=== PATIENT | female | born 1940 | race Caucasian/White ===

== ENCOUNTER 2017-05-24 01:01 | Inpatient (IN) | payer OTHER ==
[~2017-05-24] VITALS: Ht 152.4 cm; Wt 81.3 kg
[~2017-05-24 01:01] MED LIST: JANUVIA100 MG PO; LEVOTHYROXIN0.088 MG PO; MELOXICAM7.5 MG PO
[2017-05-24 02:18] LABS: CALCIUM 8.3 mg/dL (8.5-10.1); CARBON DIOXIDE 23.3 mmol/L (21-32); CHLORIDE SERUM 99 mmol/L (98-107); CREATININE SERUM 0.8 mg/dL (0.6-1.0); GLUCOSE SERUM 136 mg/dL (74-106); POTASSIUM SERUM 3.3 mmol/L (3.5-5.1); SODIUM SERUM 132 mmol/L (136-145)
[2017-05-24 02:23] LABS: ALBUMIN 3.6 g/dL (3.4-5.0); ALKALINE PHOSPHATASE 84 U/L (46-116); ALT/SGPT 14 U/L (14-59); AMYLASE 42 U/L (25-115); AST/SGOT 17 U/L (15-37); BILIRUBIN TOTAL 0.44 mg/dL (0.20-1.00); LIPASE 86 IU/L (73-393); TOTAL PROTEIN, SERUM 7.5 g/dL (6.4-8.2)
[2017-05-24 02:37] LABS: BASOPHIL % 0.6 % (0-2); PLATELET COUNT 360 x10^3mcL (130-400)
[2017-05-24 02:45] LABS: RED CELL DISTRIBUTION WIDTH 18.5 % (11.5-14.5)
[2017-05-24 02:47] LABS: rbc morphology (normal/abnorm) ABNORMAL (NORMAL)
[2017-05-24 04:53] LABS: MAGNESIUM 1.7 mg/dL (1.8-2.4); PHOSPHOROUS 2.8 mg/dL (2.5-4.9)
[2017-05-24 04:54] LABS: T3 TOTAL 0.66 ng/mL
[2017-05-24 05:01] LABS: FREE T4 1.2 ng/dL (0.76-1.46); FREE THYROXINE INDEX 2.7 ug/dL (1.4-4.5); T4(THYROXINE) 7.5 ug/dL (4.7-13.3)
[2017-05-24 05:02] LABS: CHOLESTEROL/HDL RATIO 2.3
[2017-05-24 05:33] VITALS: BP 111/54
[2017-05-24 05:35] VITALS: BP 111/54
[2017-05-24 07:27] LABS: RED BLOOD CELLS 3.68 M/mm3 (4.10-5.10)
[2017-05-24 08:45] LABS: TOTAL IRON BINDING CAPACITY 379 ug/dL (250-450)
[2017-05-24 08:51] LABS: IRON 7 ug/dL (50-170)
[2017-05-24 10:11] VITALS: BP 105/51
[2017-05-24 13:26] VITALS: BP 109/55
[2017-05-24 14:30] VITALS: Ht 152.4 cm; Wt 81.3 kg
[2017-05-24 17:18] VITALS: BP 107/75
[2017-05-24 17:47] VITALS: BP 107/75
[2017-05-24] MEDS ORDERED: SYNTHROID0.088 MG PO (17:54)
[2017-05-24] MEDS ORDERED: JANUVIA100 M1 PO (17:57)
[2017-05-24] MEDS ORDERED: MELOXICAM7.5 M1 PO (17:58)
== END 2017-05-24 21:01 | disposition short-term general hospital (02) | DRG 391 ==
LOC: ED 01:01 → DU 04:07
PROVIDERS: Emergency Medicine; ADMIT Family Medicine
DX: K52.9 Noninfective gastroenteritis and colitis, unspecified (principal); N17.0 Acute kidney failure with tubular necrosis; E87.1 Hypo-osmolality and hyponatremia; D68.69 Other thrombophilia; E11.65 Type 2 diabetes mellitus with hyperglycemia; E11.51 Type 2 diabetes mellitus with diabetic peripheral angiopathy without gangrene; E86.0 Dehydration; E87.6 Hypokalemia; E83.51 Hypocalcemia; D50.9 Iron deficiency anemia, unspecified; E03.9 Hypothyroidism, unspecified; E66.9 Obesity, unspecified; Z68.36 Body mass index [BMI] 36.0-36.9, adult; Z79.84 Long term (current) use of oral hypoglycemic drugs
CPT/HCPCS: 82962; 83880; 84439; 87046; 87046-59; J2405; J2916; J3010; J7030; Q0092

== ENCOUNTER 2018-11-20 10:57 | Inpatient (IN) | payer OTHER ==
[~2018-11-20] VITALS: Ht 160 cm; Wt 86.0 kg
[~2018-11-20 10:57] MED LIST changes: +JANUVIA100 M1 PO; +MELOXICAM7.5 M1 PO; +SYNTHROID0.088 MG PO
--- NOTE | 2018-11-20 11:52 | NUR ---
PT STS THAT SHE WAS IN HER HOME AND FELL IN HER ROOM TWO DAYS AGO. PT STS THAT SHE DID NOT FEEL DIZZY OR LOSE CONSCIOUSNESS. HER SON HAD TO HELP HER TO HER BED AND WHEN HE WAS MOVING HER THEY HEARD A "POP". PT STS THAT SHE WAS IN "SOME PAIN". PT THOUGHT THAT SHE COULD LAY DOWN AND THAT THE PAIN WOULD GO AWAY. PT FELL AGAIN THIS MORNING AT 0900 WHEN SHE WAS WALKING OUTSIDE AND LOST FOOTING AGAIN. SON STS THAT SHE CAUGHT HERSELF ON THE PLANTER AND DID NOT HIT HER HEAD. WHEN THE PT FELL SHE WAS IN "A LOT" OF PAIN. PT STS THAT SHE HAS NO VOMITED BUT HAS SOME DIZZINESS. WHEN THE PT FELL THIS MORNING SHE LANDED ON HER LEFT HIP. SON AT BEDSIDE. RESP E/U. WILL CONTINUE TO MONITOR.
--- NOTE | 2018-11-20 12:14 | NUR ---
PT BACK FROM XRAY. PT STS THAT SHE IS STILL IN A LOT OF PAIN. NOTIFIED DR. GREEN. LAB AT BEDSIDE. WILL CONTINUE TO MONITOR.
[2018-11-20 12:29] LABS: BASOPHIL % 0.2 % (0-2); PLATELET COUNT 355 x10^3mcL (130-400)
[2018-11-20 12:30] LABS: RED CELL DISTRIBUTION WIDTH 18.5 % (11.5-14.5)
[2018-11-20 12:48] LABS: CALCIUM 8.8 mg/dL (8.5-10.1); CARBON DIOXIDE 21.6 mmol/L (21-32); CHLORIDE SERUM 102 mmol/L (98-107); CREATININE SERUM 1.1 mg/dL (0.6-1.0); GLUCOSE SERUM 83 mg/dL (74-106); SODIUM SERUM 136 mmol/L (136-145)
[2018-11-20 12:52] LABS: ALBUMIN 3.6 g/dL (3.4-5.0); ALKALINE PHOSPHATASE 85 U/L (46-116); ALT/SGPT 15 U/L (14-59); AST/SGOT 20 U/L (15-37); TOTAL PROTEIN, SERUM 7.6 g/dL (6.4-8.2)
--- NOTE | 2018-11-20 13:00 | NUR ---
RECEIVED REPORT FROM WILMAR STOUT.
[2018-11-20 13:04] LABS: rbc morphology (normal/abnorm) ABNORMAL (NORMAL)
--- NOTE | 2018-11-20 13:09 | NUR ---
CHAPERONED DR GREEN WITH RECTAL EXAM. PER PT, OK TO CUT HER LOWER GARMENTS OFF.
--- NOTE | 2018-11-20 13:55 | NUR ---
PT IN POSITION OF COMFORT. DAUGHTER AT BEDSIDE. VSS. PT STS THAT SHE IS THE SAME PAIN. DR. GREEN NOTIFIED. WILL CONTINUE TO MONITOR.
[2018-11-20] MEDS ORDERED: METFORMIN HCL1000 MG PO (14:02)
--- NOTE | 2018-11-20 14:30 | NUR ---
REPORT GIVEN TO NANCI.
--- NOTE | 2018-11-20 14:40 | NUR ---
PT BEING TAKEN UPSTAIRS BY EMT. VSS.
--- NOTE | 2018-11-20 14:45 | NUR ---
RECEIVED PT FROM ED VIA [facility], CAME IN DUE TO S/P FALL AND TUESDAY AND TODAY. AAOX4. DENIES HEADACHE/DIZZINESS. NO SOB NOTED, LUNG SOUNDS CTA. DENIES CHEST PAIN/PRESSURE. DENIES ABDOMINAL DISCOMFORT. BOWEL SOUNDS ACTIVE. VOIDS. PT IS PALE, PULSES ARE PALPABLE. C/O 10/10 LEFT HIP PAIN WORSE ON MOVEMENT. UNABLE TO ASSESS PT'S SKIN, PT REFUSES TO BE TURNED AND REPOSITIONED AT THIS TIME. IV SITE ON THE LAC GAUGE 20 IS PATENT AND INTACT. SIDE RAILS UPX2. CALL LIGHT ON REACH. ENDORSED TO PRIMARY NURSE NANCI FOR CONTINUITY OF CARE
[2018-11-20 14:54] VITALS: BP 107/54
[2018-11-20 15:02] VITALS: Ht 160 cm; Wt 86.0 kg
[2018-11-20 15:08] LABS: MAGNESIUM 2.1 mg/dL (1.8-2.4); PHOSPHOROUS 5.1 mg/dL (2.5-4.9)
--- NOTE | 2018-11-20 16:35 | NUR ---
PT REPORTED CONTINUOUS PAIN, 8/10 TO LLE. GIVEN PAIN MED, SEE MAR. ANGULO INSERTED PER PHYSICIAN ORDER. UA SENT TO LAB. TOLERATED ACTIVITY WELL. AA/OX4. NO S/S OF ACUTE DISTRESS. NO SOB ON ROOM AIR. VS STABLE: BP 97/55 (67), O2 SAT 100%, temp 97.8, hr 72, RR 14. IV WNL TO LAC, NO REDNESS, NO SWELLING, NO INFILTRATION. PATENT AND FLUSHES WELL. PT GIVEN BENADRYL AND TYLENOL ORDERED PRE-BLOOD TRANSFUSION. WILL CONTINUE TO MONITOR.
[2018-11-20 16:40] VITALS: BP 97/55
[2018-11-20 16:55] LABS: microscopic required? YES; urine erythrocyte NEGATIVE (NEGATIVE)
[2018-11-20 17:02] VITALS: BP 98/48
--- NOTE | 2018-11-20 17:03 | NUR ---
BLOOD TRANSFUSION STARTED, VERIFIED WITH CALIN STOUT. PT AND FAMILY EDUCATED REGARDING S/S ADVERSE REACTIONS PRIOR TO START OF INFUSION. VS: TEMP 97.2, HR 72, RR 16, BP 98/48, O2 SAT 94% ON RA. NO S/S ADVERSE REACTIONS NOTED AT THIS TIME. PT RESTING IN BED. FAMILY AT BEDSIDE. CALL LIGHT WITHIN REACH. WILL CONTINUE TO MONITOR.
[2018-11-20 17:17] VITALS: BP 98/47
--- NOTE | 2018-11-20 17:17 | NUR ---
BLOOD TRANSFUSION RUNNING, VS STABLE: BP 98/47, HR 71, RR 18, O2 SAT 95%, TEMP 97.0F. DENIES N/V. NO UMANZOR. NO DIZZINESS. NO HEMATURIA. ANGULO IN TACT DRAINING CLEAR/YELLOW URINE. NO SOB ON ROOM AIR. NO CHEST PAIN. PULSES +2 BUE/BLE. IV WNL TO LAC, NO REDNESS, NO SWELLING, NO INFILTRATION. PATENT. BED IN LOW POSITION. CALL LIGHT WITHIN REACH. WILL CONT. TO MONITOR.
--- NOTE | 2018-11-20 17:39 | NUR ---
DR. RAMOS AT BEDSIDE AND SET-UP 7 LBS BUCKS TRACTION ON LLE. PT TOLERATED THE PROCEDURE WELL.
--- NOTE | 2018-11-20 18:30 | NUR ---
PT LAYING IN BED. AA/OX4. NO S/S OF ACUTE DISTRESS. NO COMPLAINT OF PAIN. NO SOB ON ROOM AIR. BLOOD TRANSFUSING, NO S/S OF ADVERSE REACTION. NO CHEST PAIN. ANGULO IN TACT, OUTPUT 450CC, URINE CLEAR/YELLOW. IV WNL TO LAC, NO REDNESS, NO SWELLING, NO INFILTRATION. PATENT. ASP. PREC IN PLACE, SUCTION AT BEDSIDE. NO UMANZOR. NO DIZZINESS. BUCKS TRACTION IN PLACE. BED IN LOW POSITION. CALL LIGHT WITHIN REACH. SANNA ENDORSE TO ONCOMING SHIFT.
--- NOTE | 2018-11-20 19:35 | NUR ---
TRANSFUSION OF PRBC UNIT #[id number] COMPLETED. NO TRANSFUSION REACTIONS NOTED. VITAL SIGNS T 98.1F, [place] 72, BP 101/56, RR 18. O2 SAT 95% ON ROOM AIR. FLUSHED IV LINE TO LEFT AC WITH NS, FLUSHED WELL. NO SIGNS OF INFILTRATION.
--- NOTE | 2018-11-20 20:14 | NUR ---
2ND UNIT PRBC, UNIT #[id number] AND PT VERIFIED WITH NURSE DOUGIE. PRE TRANSFUSION VITAL SIGNS AT 2002H T 98.0, ND 75/MIN, BP 109/54, RR 18, O2 SAT 96%. TRANFUSION STARTED AT 2009H AT 30ML/HR. MONITORING CLOSELY.
--- NOTE | 2018-11-20 20:18 | NUR ---
LATE ENTRY: 191H - AAO X 4. SPEECH CLEAR AND APPROPRIATE. BREATHING EVEN AND UNLABORED ON ROOM AIR. LUNG SOUNDS CLEAR. STATED COMFORTABLE AT THIS TIME. PAIN LEVEL TO LEFT HIP 10/12. BLOOD TRANSFUSION ONGOING. IV SITE TO LEFT AC FREE FROM REDNESS OR INFILTRATION. FAMILY MEMBERS IN ROOM, ASKING IF A FEMALE MEMBER MAY STAY, OK WITH IMANI SHANNON.
[2018-11-20 20:25] VITALS: BP 105/54
--- NOTE | 2018-11-20 20:25 | NUR ---
VITAL SIGNS TAKEN, T 97.9F, TN 71/MIN, BP 105/54, O2 SAT 96%. NO TRANSFUSION REACTIONS NOTED. INCREASED TRANSFUSION RATE TO 110ML/HR.
--- NOTE | 2018-11-20 22:27 | NUR ---
EYES CLOSED, BREATHING EVEN AND UNLABORED ON ROOM AIR. HOB KEPT ELEVATED 30 DEG. CALL LIGHT WITHIN EASY REACH. BLOOD TRANSFUSION INFUSING WELL.
--- NOTE | 2018-11-20 22:27 | NUR ---
LATE ENTRY: 2129H - FAMILY MEMBERS LEFT. PT EYES CLOSED, BREATHING EVEN AND UNLABORED ON ROOM AIR. CALL LIGHT WITHIN EASY REACH. BLOOD TRANSFUSION INFUSING WELL. NO SIGNS OF BLOOD TRANSFUSION REACTIONS.
--- NOTE | 2018-11-20 23:13 | NUR ---
completed transfusion of 2nd unit prbc, no transfusion reactions noted. vital signs, t 97.1f, pr 68, rr 17, bp 110/57, o2 sat 95% on room air. pt awake and alert.
[2018-11-20 23:14] VITALS: BP 110/57
--- NOTE | 2018-11-20 23:43 | NUR ---
VERIFIED WITH DR. ASHRAF NUMBER OF UNITS PRBC TO BE TRANSFUSED, SHE CONFIRMED TOTAL OF 3 UNITS. PRE TRANSFUSION VITAL SIGNS AT 2331H - T 97.2F, OH 66, RR 18, BP 113/58, O2 SAT 95% ON ROOM AIR. PRBC AND PT VERIFIED WITH NURSE PEREZ. 2339H - STARTED TRANSFUSION AT 30ML/HR. MONITORING CLOSELY.
--- NOTE | 2018-11-20 23:56 | NUR ---
T 97.3F, OK 70, RR 18, BP 115/58, O2 SAT 94% RA. NO TRANSFUSION REACTIONS NOTED. IV SITE FREE FROM REDNESS OR SWELLING. INCREASED TRANSFUSION RATE TO 110ML/HR.
[2018-11-21] VITALS (7 sets, daily range): BP systolic 104–121; BP diastolic 55–64
--- NOTE | 2018-11-21 00:45 | NUR ---
EYES CLOSED, BREATHING EVEN AND UNLABORED ON ROOM AIR. BLOOD INFUSING WELL, NO REDNESS OR SWELLING NOTED TO IV SITE TO LEFT AC. CALL LIGHT WITHIN EASY REACH.
--- NOTE | 2018-11-21 02:14 | NUR ---
COMPLETED TRANSFUSION OF 3RD UNIT PRBC. VITAL SIGNS T 97.8F, CA 70, RR 18, BP 110/58, O2 SAT 94% ON ROOM AIR. AWAKE AND ALERT, BREATHING EVEN AND UNLABORED ON ROOM AIR. NO TRANSFUSION REACTIONS NOTED. IV SITE TO LEFT AC FREE FROM REDNESS OR SWELLING.
[2018-11-21 06:19] LABS: BASOPHIL % 0.7 % (0-2); PLATELET COUNT 323 x10^3mcL (130-400)
[2018-11-21 06:37] LABS: CALCIUM 8.4 mg/dL (8.5-10.1); CARBON DIOXIDE 24.2 mmol/L (21-32); CHLORIDE SERUM 105 mmol/L (98-107); CREATININE SERUM 0.8 mg/dL (0.6-1.0); GLUCOSE SERUM 83 mg/dL (74-106); PHOSPHOROUS 3.9 mg/dL (2.5-4.9); POTASSIUM SERUM 4.5 mmol/L (3.5-5.1); SODIUM SERUM 139 mmol/L (136-145)
--- NOTE | 2018-11-21 06:59 | NUR ---
EYES CLOSED, EASILY AWAKENED. BREATHING EVEN AND UNLABORED ON ROOM AIR. IVF OF NS AT 100ML/HR. CALL LIGHT WITHIN EASY REACH.
--- NOTE | 2018-11-21 07:05 | NUR ---
RECIEVED PT FROM NOC GIRISH THRASHER. PT AA/OX4. FOLLOWS COMPLEX COMMANDS, RESPONDS TO VERBAL STIMULI, FACE SYMMETRICAL. SPEECH CLEAR. SPEAKS PANAMANIAN. NO UMANZOR. NO DIZZINESS. NO CHEST PAIN. MED-SURG. LUNG SOUNDS CTA BILATERALLY ON ROOM AIR. RR EVEN/UNLABORED. CHEST EXPANSION SYMMETRICAL. DENIES SOB. PULSES +2 BUE/BLE. +1 PITTING EDEMA NOTED BUE/BLE. CAP REFILLS <3 SEC BUE/BLE. ABD. SOFT, ROUND, NON-DISTENDED. BOWEL SOUNDS ACTIVE X4. DENIES ABD. PAIN. NO N/V/D. ANGULO IN TACT DRAINING CLEAR/YELLOW URINE. BUCKS TRACTION IN PLACE TO LLE. IV WNL TO LAC, NO REDNESS, NO SWELLING, NO INFILTRATION. PATENT. IV FLUIDS FLOWING. FALL PREC IN PLACE. INSTRUCTED PT TO USE CALL LIGHT TO CALL FOR ASSISTANCE PRN. PT VERBALIZED UNDERSTANDING. BED IN LOW POSITION. CALL LIGHT WITHIN REACH. WILL CONT. TO MONITOR.
--- NOTE | 2018-11-21 07:13 | NUR ---
AWAKE AND ALERT, IN NO ACUTE DISTRESS. ENDORSED TO NURSE NANCI
[2018-11-21 08:15] LABS: RED CELL DISTRIBUTION WIDTH 24.2 % (11.5-14.5)
--- NOTE | 2018-11-21 10:17 | NUR ---
PT COMPLAINT OF PAIN TO LLE, 10/10, WORSE WITH MOVEMENT/REPOSITIONING. PT GIVEN PAIN MEDICATION, SEE MAR. NO SOB ON ROOM AIR. RR EVEN/UNLABORED. CHEST EXPANSION SYMMETRICAL. NO CHEST PAIN. IV WNL TO LAC, NO REDNESS, NO SWELLING, NO INFILTRATION. PATENT AND FLUSHES WELL. ASSISTED PT TO REPOSITION. BED IN LOW POSITION. CALL LIGHT WITHIN REACH. BUCKS TRACTION IN PLACE TO LLE. TRAPEZE IN PLACE. ANGULO IN TACT DRAINING CLEAR/YELLOW URINE. FAMILY AT BEDSIDE. WILL CONT. TO MONITOR.
--- NOTE | 2018-11-21 11:43 | NUR ---
PT LAYING IN BED. AA/OX4. COMPLAINT OF CONTINUOUS PAIN TO LLE, RATES 8/10, ACHING, WORSE WITH MOVEMENT. GIVEN PAIN MED SEE MAR. NO SOB ON ROOM AIR. NO CHEST PAIN. IV WNL, IV FLUIDS FLOWING. PT CALM/COOPERATIVE. BUCKS TRACTION IN PLACE TO LLE. TRAPEZE IN PLACE. ANGULO IN TACT DRAINING CLEAR/YELLOW URINE. BED IN LOW POSITION. CALL LIGHT WITHIN REACH. WILL CONT. TO MONITOR.
[2018-11-21] MEDS ORDERED: FER300 PO (13:23)
--- NOTE | 2018-11-21 16:04 | NUR ---
PT BEING TRANSFERRED TO [facility]. ROOM 421B WITH DR. GLYNN MACIAS. REPORT # [phone], GIVEN TO GIRISH RUBIO.
--- NOTE | 2018-11-21 17:35 | NUR ---
S AMBULANCE TAKING PATIENT BY [facility] TO [facility]. NO S/S OF ACUTE DISTRESS. COMPLAINT OF PAIN 07/12 LLE, GIVEN PAIN MED. SEE MAR. NO SOB ON ROOM AIR. NO CHEST PAIN. IV WNL TO LAC, NO REDNESS, NO SWELLING, NO INFILTRATION. PATENT. ANGULO IN TACT. YELLOW/CLEAR. LLE STABALIZED BY EMT. AA/OX4. ACCOMPANIED BY SON AND FAMILY MEMBER. BELONGINGS WITH PATIENT. DISCHARGE EDUCATION PROVIDED TO PATIENT AND FAMILY. VERBALIZED UNDERSTANDING.
== END 2018-11-21 17:36 | disposition short-term general hospital (02) | DRG 535 ==
LOC: ED 10:57 → MU 13:54
PROVIDERS: Emergency Medicine; ADMIT Family Medicine
PROC: 30233N1 Transfusion of Nonautologous Red Blood Cells into Peripheral Vein, Percutaneous Approach (ICD-10-PCS; principal; 2018-11-20)
DX: S72.141A Displaced intertrochanteric fracture of right femur, initial encounter for closed fracture (principal); N17.0 Acute kidney failure with tubular necrosis; E11.9 Type 2 diabetes mellitus without complications; D50.9 Iron deficiency anemia, unspecified; E03.9 Hypothyroidism, unspecified; W17.89XA Other fall from one level to another, initial encounter; Y93.89 Activity, other specified; Y92.013 Bedroom of single-family (private) house as the place of occurrence of the external cause; Z68.33 Body mass index [BMI] 33.0-33.9, adult; Z79.84 Long term (current) use of oral hypoglycemic drugs
CPT/HCPCS: 82962; 83880; J1644; J1940; J2270; J2405; J7030; P9016; Q0092; Q0163

== ENCOUNTER 2019-03-27 17:13 | Emergency (ER) | payer OTHER ==
[~2019-03-27] VITALS: Ht 165.1 cm; Wt 86.2 kg
[~2019-03-27 17:13] MED LIST changes: +FER300 PO; +METFORMIN HCL1000 MG PO
[2019-03-27 17:15] VITALS: Ht 165.1 cm; Wt 86.2 kg
[2019-03-27 20:55] LABS: BASOPHIL % 0.8 % (0-2); PLATELET COUNT 282 x10^3mcL (130-400); RED CELL DISTRIBUTION WIDTH 14.4 % (11.5-14.5)
[2019-03-27 21:03] LABS: CALCIUM 9.5 mg/dL (8.5-10.1); CHLORIDE SERUM 98 mmol/L (98-107); GLUCOSE SERUM 93 mg/dL (74-106); POTASSIUM SERUM 4.5 mmol/L (3.5-5.1); SODIUM SERUM 134 mmol/L (136-145)
[2019-03-27 21:13] LABS: ALBUMIN 4.2 g/dL (3.4-5.0); ALKALINE PHOSPHATASE 99 U/L (46-116); ALT/SGPT 17 U/L (14-59); AST/SGOT 17 U/L (15-37); BILIRUBIN TOTAL 0.2 mg/dL (0.20-1.00); TOTAL PROTEIN, SERUM 8.2 g/dL (6.4-8.2)
[2019-03-27 21:45] VITALS: BP 129/65
== END 2019-03-27 21:45 | disposition home or self-care (01) ==
LOC: ED 17:13
PROVIDERS: Emergency Medicine
DX: S52.612A Displaced fracture of left ulna styloid process, initial encounter for closed fracture (principal); S52.572A Other intraarticular fracture of lower end of left radius, initial encounter for closed fracture; I44.0 Atrioventricular block, first degree; E11.9 Type 2 diabetes mellitus without complications; Z90.49 Acquired absence of other specified parts of digestive tract; Z98.890 Other specified postprocedural states; W20.8XXA Other cause of strike by thrown, projected or falling object, initial encounter; Y93.89 Activity, other specified; Y92.89 Other specified places as the place of occurrence of the external cause; Y99.8 Other external cause status
CPT/HCPCS: 36415; J1885; J2270